=== PATIENT | male | born 1955 | race Caucasian/White ===

== ENCOUNTER 2018-05-17 13:12 | Day surgery (SDC) | payer OTHER ==
[~2018-05-17] VITALS: Ht 167.6 cm; Wt 81.1 kg
[2018-05-17 14:09] VITALS: Ht 167.6 cm; Wt 81.1 kg
[2018-05-17] MEDS ORDERED: FINA5TAB4 PO (14:15)
[2018-05-17] MEDS ORDERED: VIT D (14:15)
[2018-05-17] MEDS ORDERED: TAMS0.4C2 PO (14:15)
[2018-05-17] MEDS ORDERED: ATOR40TA68 PO (14:15)
[2018-05-17 14:23] VITALS: BP 128/75; PULSE 62; RESP 22
--- NOTE | 2018-05-17 15:21 | PREAC ---
Date/Time of Note Date/Time of Note DATE: 05/17/18 TIME: 15:19 Anesthesia Eval and Record Evaluation Time Pre-Procedure Interview DATE: 05/17/18 TIME: 15:19 Age 62 Sex male NPO: 8 hrs Preoperative diagnosis Screening, Reflux Planned procedure EGD, Colonoscopy Past Medical History Past Medical History: Includes Cardio: Dyslipidemia, Other (BPH) GI: GERD Surgery & Anesthesia Issues No known issue Meds Anticoagulation: No Beta Eleanor within 24 hr: No Reason Beta Eleanor not given: Pt. not on B-Eleanor Reported Medications [Vit .d 2,000U] No Conflict Check 05/17/18 Atorvastatin* (Atorvastatin*) 40 Mg Tablet, 10 MG PO QHS, #30 TAB 05/17/18 Finasteride* (Finasteride*) 5 Mg Tablet, 5 MG PO DAILY, TAB 05/17/18 Tamsulosin Hcl* (Tamsulosin Hcl*) 0.4 Mg Cap.er.24h, 0.4 MG PO DAILY, CAP 05/17/18 Meds reviewed: Yes Allergies Coded Allergies: No Known Drug Allergies (Verified Allergy, Unknown, 05/17/18) Allergies Reviewed: Yes Labs/Studies Labs Reviewed: Reviewed by anesthesiologist test: N/A Studies: ECG (N/A), CXR (N/A) Pre-procedure Exam Last vitals Vital Signs Date Temp Pulse Resp B/P (MAP) Pulse Ox O2 O2 Flow FiO2 Time Delivery Rate 05/17/18 97.7 62 22 128/75 95 Room Air 14:23 (92) Airway: Adequate mouth opening, Adequate thyromental dist Mallampati: Mallampati II Teeth: Normal Lung: Normal Heart: Normal ASA Physical Status ASA physical status: 2 Emergency: None Planned Anesthetic General/MAC: MAC Planned Pain Management Parenteral pain med Pre-operative Attestations Prior to commencing anesthesia and surgery, the patient was re-evaluated, there was verification of: *The patient's identity *The results of appropriate recent lab work and preoperative vital signs *The above evaluation not changing prior to induction *Anesthetic plan, risk benefits, alternative and complications discussed with patient/family; questions answered; patient/family understands, accepts and wishes to proceed. LINDSEY OBRIEN MD May 17, 2018 15:21
[2018-05-17] MEDS ORDERED: METOCLOPRAMIDE 10 MG INJ IV PRN (15:30)
[2018-05-17] MEDS ORDERED: ONDANSETRON 4 MG INJ IV PRN (15:30)
[2018-05-17] MEDS ORDERED: LABETALOL HCL 20MG INJ IV PRN (15:30)
[2018-05-17] MEDS ORDERED: HYDROmorphONE 1 MG/5 ML IV SYRINGE IV PRN ×2 (15:30)
[2018-05-17] MEDS ORDERED: hydrALAzine 20 MG INJ IV PRN (15:30)
[2018-05-17] MEDS ORDERED: FENTAnyl 50 MCG/ML VIAL IV PRN ×2 (15:30)
[2018-05-17] MEDS ORDERED: PROPOFOL 60 ML ONE (15:44)
--- NOTE | 2018-05-17 15:45 | PAC ---
Date/Time of Note Date/Time of Note DATE: 05/17/18 TIME: 15:45 Post-Anesthesia Notes Post-Anesthesia Note Last documented vital signs Vital Signs Date Temp Pulse Resp B/P (MAP) Pulse Ox O2 O2 Flow FiO2 Time Delivery Rate 05/17/18 97.7 62 22 128/75 95 Room Air 15:53 (92) Activity: WNL Respiratory function: WNL Cardiovascular function: WNL Mental status: Baseline Pain reasonably controlled: Yes Hydration appropriate: Yes Nausea/Vomiting absent: Yes LINDSEY OBRIEN MD May 17, 2018 15:45
== END 2018-05-17 17:12 | disposition home or self-care (01) ==
LOC: GIL 13:12
PROVIDERS: ATTEND Internal Medicine Gastroenterology
DX: Z12.11 Encounter for screening for malignant neoplasm of colon (principal); K21.0 Gastro-esophageal reflux disease with esophagitis; K62.1 Rectal polyp; K29.00 Acute gastritis without bleeding; K57.30 Diverticulosis of large intestine without perforation or abscess without bleeding; K64.8 Other hemorrhoids; E78.5 Hyperlipidemia, unspecified
CPT/HCPCS: 43239; 45380; 88305; 88312; 88313; Z7610